=== PATIENT | male | born 1955 | race Caucasian/White ===

== ENCOUNTER 2018-11-13 13:50 | Emergency (ER) | payer MEDICARE, OTHER ==
[~2018-11-13] VITALS: Ht 167.6 cm; Wt 70.4 kg
--- NOTE | 2018-11-13 13:53 | QN ---
Documentation Comment Patient seen immediately upon arrival as the patient arrived by ambulance. Chief complaint is for leg pain. The patient was sent to triage for vital signs and will be seen by another provider. Medical screening exam was initiated. MESERET BANDA MD Nov 13, 2018 13:53
[2018-11-13 14:05] VITALS: Ht 167.6 cm; Wt 70.4 kg
[2018-11-13] MEDS ORDERED: CLINDAMYCIN 900 MG/D5W (PMX) 50 ML IVPB STA (17:28)
[2018-11-13] MEDS ORDERED: IBUPROFEN 600 MG TAB PO ONE (17:30)
[2018-11-13] MEDS ORDERED: HYDROCODONE/APAP (10/325) TAB PO ONE (17:30)
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
[2018-11-13] MEDS ORDERED: CLIN300C10 PO (18:44)
[2018-11-13 19:40] VITALS: BP 159/81; PULSE 97; RESP 18
== END 2018-11-13 19:42 | disposition home or self-care (01) ==
LOC: FTE 13:50
DX: L03.116 Cellulitis of left lower limb (principal); I10 Essential (primary) hypertension; E11.9 Type 2 diabetes mellitus without complications
CPT/HCPCS: 36415; 80053; 85025; 93971; 96374